=== PATIENT | male | born 1990 | race African-American/Black ===

== ENCOUNTER 2021-02-21 20:24 | Emergency (ER) | payer OTHER ==
[~2021-02-21] VITALS: Ht 162.6 cm; Wt 74.8 kg
[2021-02-21 21:30] VITALS: BP 117/73; TEMP 98.3
== END 2021-02-21 21:30 | disposition home or self-care (01) ==
LOC: ED 20:24
DX: S30.862A Insect bite (nonvenomous) of penis, initial encounter (principal); W57.XXXA Bitten or stung by nonvenomous insect and other nonvenomous arthropods, initial encounter; Y92.89 Other specified places as the place of occurrence of the external cause
CPT/HCPCS: 99282